=== PATIENT | female | born 1960 | race African-American/Black ===

== ENCOUNTER 2024-03-20 21:16 | Emergency (ER) | payer OTHER ==
[2024-03-20 21:24] VITALS: TEMP 98.3; BMI 41.9
[2024-03-20 22:40] LABS: BASO % 1.1 % (0-2.0); HEMATOCRIT 34.4 % (32.4-45.2); HEMOGLOBIN 11.4 GM/dL (10.7-15.3); MCH 27.6 pg (25.7-33.7); MCHC 33.1 g/dl (32.0-36.0); MEAN CELL VOLUME 83.2 fl (80-96); NEUT % 43.9 % (42.8-82.8); PLATELET COUNT 254 10^3/uL (134-434); RBC 4.13 M/mm3 (3.60-5.2); RDW 15.1 % (11.6-15.6); WHITE BLOOD COUNT 5.3 K/mm3 (4.0-10.0)
[2024-03-20 23:01] LABS: POTASSIUM 3.5 mmol/L (3.5-5.1)
[2024-03-20 23:03] LABS: BLOOD UREA NITROGEN 13.6 mg/dL (7-18); CALCIUM 9.9 mg/dL (8.5-10.1)
[2024-03-20 23:07] LABS: CREATININE 0.7 mg/dL (0.55-1.3)
[2024-03-20 23:08] LABS: BILIRUBIN,TOTAL 0.4 mg/dL (0.2-1)
[2024-03-21 01:33] VITALS: BP 115/70; PULSE 70; RESP 16
== END 2024-03-21 01:39 | disposition home or self-care (01) ==
LOC: JER 21:16
DX: R00.2 Palpitations (principal); R07.89 Other chest pain; R20.2 Paresthesia of skin
CPT/HCPCS: 36415; 71046-TC-FY; 80053; 84443; 84484; 85025; 93005; 93010; 99285-25

== ENCOUNTER → 2024-07-23 | Day surgery (SDC) | payer OTHER | END | disposition home or self-care (01) | LOC: JRADIR 09:41 | PROVIDERS: ATTEND Internal Medicine Endocrinology, Diabetes & Metabolism | PROC: 0G9H3ZX Drainage of Right Thyroid Gland Lobe, Percutaneous Approach, Diagnostic (ICD-10-PCS; principal; 2024-07-23) | DX: E04.1 Nontoxic single thyroid nodule (principal) | CPT/HCPCS: 10005; 76942; 88173; 88305-TC ==

== ENCOUNTER 2024-11-21 11:25 | Emergency (ER) | payer OTHER ==
[2024-11-21 11:49] VITALS: BP 162/89; PULSE 70; RESP 20; TEMP 97.5; BMI 32.4
[2024-11-21 12:20] LABS: ABSOLUTE IMMATURE GRANULOCYTES 0.02 x10^3/uL (0.0-0.031); BASOPHILS # 0.04 x10^3/uL (0.01-0.08); EOSINOPHIL % 2.3 % (0.7-5.8); MCHC 33.3 g/dl (32.2-35.5); MEAN CELL VOLUME 83.1 fl (79.4-94.8); MONOCYTE # 0.47 x10^3/uL (0.24-0.86); MONOCYTE % 10.9 % (4.7-12.5); PLATELET COUNT 222 x10^3/uL (182-369); RDW 14.7 % (12.4-16.4)
[2024-11-21 12:42] LABS: CREATININE 0.7 mg/dl (0.6-1.3); GLUCOSE,RANDOM 92 mg/dl (74-106); SODIUM 141 mmol/L (136-145)
[2024-11-21 12:43] LABS: ALBUMIN 4.4 g/dl (3.4-5.0); ANION GAP 10 mmol/L (4-13); BILIRUBIN,TOTAL 0.5 mg/dl (0.2-1); CALCIUM 9.6 mg/dl (8.5-10.1); CHLORIDE 102 mmol/L (98-107); CO2 29 mmol/L (21-32); TOT PROT 6.5 g/dl (6.4-8.2)
[2024-11-21 12:44] LABS: ALK PHOS 54 U/L (45-117); SGOT/AST 31 U/L (15-37); SGPT/ALT 39 U/L (7-52)
== END 2024-11-21 16:52 | disposition home or self-care (01) ==
LOC: FER 11:25
DX: L03.115 Cellulitis of right lower limb (principal)
CPT/HCPCS: 36415; 73701-TC-RT; 80053; 85025; 86140; 99285-25; Q9967

== ENCOUNTER 2024-11-25 06:42 | Day surgery (SDC) | payer OTHER ==
[2024-11-24 10:40] VITALS: BMI 43.2
[2024-11-25] MEDS ORDERED: LIDOCAINE 1%/EPI 1:100000 (20 ML MULTI DOSE VIAL) ONE ×2 (07:17→11:00)
[2024-11-25] MEDS ORDERED: SUGAMMADEX SODIUM 200 MG/2 ML VIAL ONE (07:52)
[2024-11-25] MEDS ORDERED: PROPOFOL 40 ML ONE (07:52)
[2024-11-25] MEDS ORDERED: MIDAZOLAM HCL 2 MG/2 ML SINGLE DOSE VIAL ONE (07:53)
[2024-11-25] MEDS ORDERED: ROCURONIUM BROMIDE 50 MG/5 ML SYRINGE ONE ×3 (07:53→10:22)
[2024-11-25] MEDS: ceFAZolin SODIUM 1 GM VIAL IVPB ONE ×2 (08:20)
[2024-11-25] MEDS ORDERED: ONDANSETRON 4 MG/2 ML VIAL IVPUSH PRN (09:04)
[2024-11-25] MEDS ORDERED: LACTATED RINGERS SOLUTION 1,000 ML IV SCH (09:15)
[2024-11-25] MEDS: LACTATED RINGERS SOLUTION 1,000 ML IV SCH (10:51)
[2024-11-25 13:14] VITALS: RESP 16
[2024-11-25] MEDS ORDERED: oxyCODONE HCL 5 MG TABLET ONE (13:54)
[2024-11-25] MEDS: oxyCODONE HCL 5 MG TABLET PO PRN (13:57)
[2024-11-25 16:31] VITALS: BP 158/80; PULSE 90; TEMP 97.8
== END 2024-11-25 16:11 | disposition home or self-care (01) ==
LOC: JASU-SURG 06:42
PROVIDERS: ATTEND Surgery
PROC: 0GTH0ZZ Resection of Right Thyroid Gland Lobe, Open Approach (ICD-10-PCS; principal; 2024-11-25 08:00)
DX: E04.8 Other specified nontoxic goiter (principal)
CPT/HCPCS: 88307-TC; 94760